=== PATIENT | male | born 1950 | race Caucasian/White ===

== ENCOUNTER 2017-09-03 08:24 | Outpatient (CLI) | payer MEDICAID ==
--- NOTE | 2017-09-03 13:49 | Cat Scan Report ---
CT ABDOMEN PELVIS WITHOUT CONTRAST: HISTORY: Malignant neoplasm of prostate. COMPARISON: 09/13/15. TECHNIQUE: Helical CT in 1.25mm intervals without IV contrast. Sagittal and coronal reconstructions. FINDINGS: Lung bases: No nodule or mass. Liver: Normal. Biliary system: Normal. Pancreas: Normal. Spleen: Normal. Kidneys/ureters/bladder: The kidneys and the ureters are within normal limits. The bladder is poorly distended but there is suggestion of diffuse bladder wall thickening which could represent trabeculation or cystitis. The prostate gland measures 3.6 cm in diameter. Adrenal glands: Normal. Aorta: Mild diffuse calcifications. No aneurysm. Intestines: Normal. Appendix: Normal. Pelvic viscera: Normal. Ascites: None. Adenopathy: No abdominal or pelvic adenopathy has developed. The borderline left iliac lymph nodes have resolved since the CT biopsy dated 09/20/15. Musculoskeletal: Mild lumbar spondylosis. No suspicious bony lesion. IMPRESSION: No evidence for metastatic disease in the abdomen or pelvis. Mild bladder wall thickening consistent with trabeculation or cystitis.
--- NOTE | 2017-09-03 13:50 | Nuclear Medicine Report ---
BONE SCAN: History: Malignant neoplasm of prostate. Comparison: Bone scan dated 09/13/15. CT abdomen and pelvis performed the same day. After injection of isotope, gamma camera imaging of the bony system was done. There is a normal uptake of isotope throughout the bony structures without areas of significantly increased or decreased uptake. Normal uptake in the urinary system is seen. IMPRESSION: Normal bone scan.
== END 2017-09-03 08:25 | disposition home or self-care (01) ==
LOC: NM 08:24
PROVIDERS: ATTEND Urology
DX: C61 Malignant neoplasm of prostate (principal); I70.0 Atherosclerosis of aorta; M47.896 Other spondylosis, lumbar region; F17.200 Nicotine dependence, unspecified, uncomplicated; Z79.899 Other long term (current) drug therapy
CPT/HCPCS: 74176; 78306; A9503